=== PATIENT | female | born 1990 | race African-American/Black ===

== ENCOUNTER 2021-01-07 12:10 | Day surgery (SDC) | payer OTHER ==
[2021-01-06 17:39] VITALS: BMI 27.6
[2021-01-07 13:29] LABS: BASO % 0.3 % (0-2.0); EOS % 2.4 % (0-4.5); HEMATOCRIT 34.9 % (32.4-45.2); HEMOGLOBIN 11.6 GM/dL (10.7-15.3); LYMPH % 31.7 % (8-40); MCH 32.1 pg (25.7-33.7); MCHC 33.4 g/dl (32.0-36.0); MEAN CELL VOLUME 96.1 fl (80-96); MEAN PLT VOLUME 8.1 fl (7.5-11.1); MONO % 8.9 % (3.8-10.2); NEUT % 56.7 % (42.8-82.8); PLATELET COUNT 273 K/MM3 (134-434); RBC 3.63 M/mm3 (3.60-5.2); RDW 13.5 % (11.6-15.6); WHITE BLOOD COUNT 8.8 K/mm3 (4.0-10.0)
[2021-01-07 13:37] LABS: INR 1.03 (0.83-1.09); PROTHROMBIN TIME (PATIENT) 12.7 SEC (9.7-13.0)
[2021-01-07] MEDS ORDERED: LIDOCAINE HCL/PF 2% SDV 5ML VIAL ONE (14:04)
[2021-01-07] MEDS ORDERED: ONDANSETRON 4 MG/2 ML VIAL ONE (14:04)
[2021-01-07] MEDS ORDERED: DEXAMETHASONE SOD PHOSPHATE 4 MG/1 ML VIAL ONE (14:04)
[2021-01-07] MEDS ORDERED: MIDAZOLAM HCL 2 MG/2 ML SINGLE DOSE VIAL ONE (14:05)
[2021-01-07] MEDS ORDERED: oxyCODONE HCL 5 MG TABLET PO PRN (14:11)
[2021-01-07] MEDS ORDERED: PROMETHAZINE HCL 25 MG/1 ML VIAL IVPB PRN (14:11)
[2021-01-07] MEDS ORDERED: ONDANSETRON 4 MG/2 ML VIAL IVPUSH PRN (14:11)
[2021-01-07] MEDS ORDERED: PROPOFOL 20 ML ONE ×2 (14:46→15:06)
[2021-01-07 16:33] VITALS: PULSE 80
[2021-01-07 17:00] VITALS: BP 161/96; TEMP 97.2
== END 2021-01-07 17:08 | disposition home or self-care (01) ==
LOC: JASU-SURG 12:10
PROVIDERS: ATTEND Obstetrics & Gynecology
PROC: 0UC98ZZ Extirpation of Matter from Uterus, Via Natural or Artificial Opening Endoscopic (ICD-10-PCS; principal; 2021-01-07 14:00)
DX: Z30.432 Encounter for removal of intrauterine contraceptive device (principal)
CPT/HCPCS: 36415; 84702; 85025; 85610; 86850; 86870; 86900; 86901; 86902; 88304-TC; 94760